=== PATIENT | male | born 2000 | race African-American/Black ===

== ENCOUNTER 2024-12-11 15:17 | Emergency (ER) | payer OTHER ==
[~2024-12-11] VITALS: Ht 177.8 cm; Wt 72.6 kg
[2024-12-11] MEDS ORDERED: IBUP-1490 PO (16:06)
[2024-12-11 16:12] VITALS: BP 131/69; TEMP 97.9; O2SAT 100
== END 2024-12-11 16:12 | disposition home or self-care (01) ==
LOC: ER 15:22
DX: R07.89 Other chest pain (principal); R07.81 Pleurodynia; F17.210 Nicotine dependence, cigarettes, uncomplicated